=== PATIENT | female | born 1965 | race Two or more races ===

== ENCOUNTER 2019-07-11 10:54 | Outpatient (CLI) | payer OTHER | END 2019-07-11 11:02 | disposition home or self-care (01) | LOC: MAMO-SONO 10:54 → EDBD 10:54 → MAMO-SONO 11:02 | DX: N63.20 Unspecified lump in the left breast, unspecified quadrant (principal); N81.0 Urethrocele; Z12.31 Encounter for screening mammogram for malignant neoplasm of breast; N92.1 Excessive and frequent menstruation with irregular cycle ==

== ENCOUNTER 2021-03-04 08:29 | Outpatient (CLI) | payer OTHER | END 2021-03-04 08:54 | disposition home or self-care (01) | LOC: MAMO-SONO 08:29 | PROVIDERS: ATTEND Obstetrics & Gynecology | DX: N60.11 Diffuse cystic mastopathy of right breast (principal); N60.12 Diffuse cystic mastopathy of left breast ==

== ENCOUNTER 2022-06-16 09:53 | Outpatient (CLI) | payer OTHER | END 2022-06-16 09:55 | disposition home or self-care (01) | LOC: SONOGRAMA 09:53 | PROVIDERS: ATTEND Specialist | DX: N85.01 Benign endometrial hyperplasia (principal) ==

== ENCOUNTER 2023-07-13 09:09 | Outpatient (CLI) | payer OTHER | END 2023-07-13 09:20 | disposition home or self-care (01) | LOC: MAMO-SONO 09:09 | PROVIDERS: ATTEND Pediatrics | DX: N92.1 Excessive and frequent menstruation with irregular cycle (principal); Z12.31 Encounter for screening mammogram for malignant neoplasm of breast; N64.4 Mastodynia; N63.20 Unspecified lump in the left breast, unspecified quadrant ==

== ENCOUNTER 2024-07-22 09:10 | Outpatient (CLI) | payer OTHER | END 2024-07-22 09:15 | disposition home or self-care (01) | LOC: MAMO-SONO 09:10 | PROVIDERS: ATTEND Specialist | DX: R10.2 Pelvic and perineal pain (principal); N95.1 Menopausal and female climacteric states; D25.9 Leiomyoma of uterus, unspecified; N64.2 Atrophy of breast; Z12.31 Encounter for screening mammogram for malignant neoplasm of breast ==

== ENCOUNTER → 2024-12-27 | Outpatient (CLI) | payer OTHER | END | disposition home or self-care (01) | LOC: MRI 09:25 | PROVIDERS: ATTEND Neuromusculoskeletal Medicine, Sports Medicine | DX: M25.562 Pain in left knee (principal) | CPT/HCPCS: 73721 ==

== ENCOUNTER 2025-02-20 08:12 | Outpatient (CLI) | payer OTHER | END 2025-02-20 08:22 | disposition home or self-care (01) | LOC: RAD 08:12 | PROVIDERS: ATTEND Neuromusculoskeletal Medicine, Sports Medicine | DX: M17.0 Bilateral primary osteoarthritis of knee (principal) ==

== ENCOUNTER 2025-08-28 09:28 | Outpatient (CLI) | payer OTHER | END 2025-08-28 09:47 | disposition home or self-care (01) | LOC: MAMO-SONO 09:28 | PROVIDERS: ATTEND Pediatrics | DX: N64.4 Mastodynia (principal); N63.20 Unspecified lump in the left breast, unspecified quadrant; Z12.31 Encounter for screening mammogram for malignant neoplasm of breast; N92.1 Excessive and frequent menstruation with irregular cycle ==